=== PATIENT | female | born 1980 | race Two or more races ===

== ENCOUNTER 2024-02-13 20:01 | Emergency (ER) | payer MEDICAID, OTHER ==
[~2024-02-13] VITALS: Ht 167.6 cm; Wt 149.0 kg
[2024-02-13 20:34] VITALS: BP 133/88; TEMP 98.7
[2024-02-13] MEDS: IPRATROPIUM BROM 0.5 MG/2.5ML INH SOL NEB ONE (21:13)
[2024-02-13] MEDS: ALBUTEROL SULF 2.5 MG/0.5ML(0.5%) NEB SOLN NEB ONE (21:14)
[2024-02-13] MEDS ORDERED: ALBUAER3 IN (23:30)
[2024-02-13] MEDS ORDERED: PRED20TA2 PO (23:30)
[2024-02-13 23:40] VITALS: PULSE 67; RESP 17; O2SAT 95
[2024-02-13] MEDS: methylPREDNISolone SOD SUCC 125 MG/2 ML VL IM ONE (23:43)
== END 2024-02-14 | disposition home or self-care (01) ==
LOC: ER 20:01
DX: J45.901 Unspecified asthma with (acute) exacerbation (principal)
CPT/HCPCS: 94640; 96372; 99283; J2919

== ENCOUNTER 2025-05-12 06:03 | Inpatient (IN) | payer MEDICAID ==
[2025-05-12] VITALS (9 sets, daily range): BP systolic 128–146; BP diastolic 59–96; PULSE 68–101; RESP 16–20; TEMP 97.2–98.3; O2SAT 94–99
[~2025-05-12] VITALS: Ht 167.6 cm; Wt 146.5 kg
[~2025-05-12 06:03] MED LIST: ALBUAER3 IN; PRED20TA2 PO
[2025-05-12] MEDS: IPRATROPIUM BROM 0.5 MG/2.5ML INH SOL NEB ONE ×2 (06:41→11:44)
[2025-05-12] MEDS: methylPREDNISolone SOD SUCC 125 MG/2 ML VL IV ONE (06:45)
[2025-05-12] MEDS: ALBUTEROL SULF 2.5 MG/0.5ML(0.5%) NEB SOLN NEB ONE (06:50)
--- NOTE | 2025-05-12 06:55 | ED.PDOC ---
SOB-HPI HPI Comments 44-year-old female with past medical history of asthma presents to the emergency department for chief complaint of shortness of breath. Patient states she has been experiencing shortness of breath sudden onset last night at 1800. Patient reports since commencement of symptoms they have progressively gotten worse. Patient comments, on using her inhaler at home with no relief of symptoms. Upon arrival to the emergency department, patient's saturation read at 92% on R.A; patient was placed on 2L NC for comfort. Patient denies fever, chills, cough, chest pain, or palpitations. Chief Complaint: Shortness of Breath Time Seen by MD: 06:50 Primary Care Provider: Isabella Simpson Reviewed notes: Nurses Notes, Medications, Allergies Mode of Arrival: Ambulatory Severity: Moderate Timing: Hours Duration: Since onset Context: At Rest PE Risk Factors: None History of: Asthma Prehospital treatment: None Modifying Factors: Nothing Associated Signs and Symptoms: None Past Medical History PAST MEDICAL HISTORY: Asthma Surgical History: Denies all surgeries SERVICE OBSERVER CHIEF History: No Pertinent SERVICE OBSERVER CHIEF History Family History Family History: Unknown Social History Smoker: Non-Smoker Alcohol: Denies ETOH Use Drugs: Denies Drug Use Lives In: Home Constitutional: denies: chills, diaphoresis, fatigue, fever, malaise, sweats, weakness, others EENTM: denies: blurred vision, double vision, ear bleeding, ear discharge, ear drainage, ear pain, ear ringing, eye pain, eye redness, hearing loss, mouth pain, mouth swelling, nasal discharge, nose bleeding, nose congestion, nose pain, photophobia, tearing, throat pain, throat swelling, voice changes, others Respiratory: reports: shortness of breath; denies: cough, hemoptysis, orthopnea, SOB at rest, SOB with excertion, stridor, wheezing, others Cardiovascular: denies: chest pain, dizzy spells, diaphoresis, Dyspnea on exertion, edema, irregular heart beat, left arm pain, lightheadedness, palpitations, PND, syncope, others Gastrointestinal: denies: abdomen distended, abdominal pain, blood streaked bowels, constipated, diarrhea, dysphagia, difficulty swallowing, hematemesis, melena, nausea, poor appetite, poor fluid intake, rectal bleeding, rectal pain, vomiting, others Genitourinary: denies: abnormal vagina bleeding, burning, dyspareunia, dysuria, flank pain, frequency, hematuria, incontinence, pain, , vagina discharge, urgency, others Neurological: denies: dizziness, fainting, headache, left sided numbness, left sided weakness, numbness, paresthesia, pre-existing deficit, right sided numbness, right sided weakness, seizure, speech problems, tingling, tremors, weakness, others Musculoskeletal: denies: back pain, gout, joint pain, joint swelling, muscle pa in, muscle stiffness, neck pain, others Integumetry: denies: bruises, change in color, change in hair/nails, dryness, laceration, lesions, lumps, rash, wounds, others Allergic/Immunocompromised: denies: Difficulty Healing, Frequent Infections, Hives, Itching, others Hematologic/Lymphatic: denies: anemia, blood clots, easy bleeding, easy bruising, swollen glands, others Endocrine: denies: excessive hunger, excessive sweating, excessive thirst, excessive urination, flushing, intolerance to cold, intolerance to heat, unexplained weight gain, unexplained weight loss, others Psychiatric: denies: anxiety, bipolar disorder, depression, hopeless, panic disorder, schizophrenia, sleepless, suicidal, others All Other Systems: Reviewed and Negative Physical Exam General Appearance: Moderate Distress HEENT: Normal ENT Inspection, Pharynx Normal, TMs Normal Neck: Full Range of Motion, Non-Tender, Normal, Normal Inspection Respiratory: Respiratory Distress, Wheezing Cardiovascular: No Edema, No JVD, No Murmur, No Gallop, Normal Peripheral Pulses, Regular Rate/Rhythm Breast Exam: Deferred Gastrointestinal: No Organomegaly, Non Tender, No Pulsatile Mass, Normal Bowel Sounds, Soft Genitalia: Deferred Pelvic: Deferred Rectal: Deferred Extremities: No calf tenderness, Normal capillary refill, Normal inspection, Normal range of motion, Non-tender, No pedal edema Musculoskeletal : Apperance: Normal Neurologic: Alert, painting machine operator II-XII nml as Tested, No Motor Deficits, Normal Affect, Normal Mood, No Sensory Deficits Cerebellar Function: Normal Reflexes: Normal Skin: Dry, Normal Color, Warm Peripheral Pulses: 3+ Radial (R), 3+ Radial (L) Lymphatic: No Adenopathy Was a procedure done? Was a procedure done?: No Differential Dx Differential Diagnosis: Anxiety, Asthma, Bronchitis, Pneumonia, Sinusitis, Pharyngitis, URI X-Ray, Labs, Meds, VS Vital Signs Date Time Temp Pulse Resp B/P (MAP) Pulse Ox O2 Delivery O2 Flow Rate FiO2 05/12/25 06:43 18 97 Nasal Cannula* 2 28 05/12/25 06:04 97.2 101 20 146/96 96 97.2 Current Medications Medications (Trade) Dose Ordered Sig/Ibis Route Start Time Stop Time Status Last Admin Ipratropium [place] (Atrovent Medneb) 0.5 mg ONCE ONCE NEB 05/12/25 06:15 05/12/25 06:16 DC 05/12/25 06:41 Albuterol (Ventolin Medneb) 5 mg ONCE ONCE NEB 05/12/25 06:45 05/12/25 06:46 DC 05/12/25 06:50 Patient alert. Complaining of shortness a breath. Vitals stable. Answering questions. Placed on oxygen. Was given breathing treatment. Was given steroid. Explained to the patient. Continue monitoring. Time of 1ST Reevaluation: 07:20 Reevaluation 1ST: Unchanged Patient Education/Counseling: Diagnosis, Treatment Family Education/Counseling: No Family Present SEPSIS Sepsis Screen Date sepsis recognized/suspect: May 12, 2025 Time Sepsis recognized/suspect: 605 Recent Procedure: No On Antibiotic Therapy: No Respiratory Rate >20: No Heart Rate >90: Yes Temp<36 C (96.8 F) or >38.3 C: No SBP <90 or MAP <65 mmHG: No New Acute Mental Status Change: No Is the patient on CPAP, BIPAP,: No Physician Orders Azithromycin 500mg/250ml (Zithromax 500m (05/12/25 06:45) Vital Signs Date Time Temp Pulse Resp B/P (MAP) Pulse Ox O2 Delivery O2 Flow Rate FiO2 05/12/25 06:43 18 97 Nasal Cannula* 2 28 05/12/25 06:04 97.2 101 20 146/96 96 97.2 Medications Medications Dose Ordered Sig/Ibis Route Start Time Stop Time Status Last Admin Dose Admin Albuterol 5 mg ONCE ONCE NEB 05/12/25 06:45 05/12/25 06:46 DC 05/12/25 06:50 Ipratropium [place] 0.5 mg ONCE ONCE NEB 05/12/25 06:15 05/12/25 06:16 DC 05/12/25 06:41 Departure 1 Departure Time of Disposition: 08:02 Impression: Primary Impression: Acute respiratory failure Qualified Codes: J96.01 - Acute respiratory failure with hypoxia Additional Impression: Acute asthma exacerbation Qualified Codes: J45.41 - Moderate persistent asthma with (acute) exacerbation Disposition: 09 ADMITTED INPATIENT Admit to: Med Surg Condition: Guarded Critical Care Note Critical Care Time?: Yes (90 min-critical care time only) Stability Stability form required: No Heart Score Heart Score: Heart Score Response (Comments) Value History N/A 0 EKG N/A 0 Age N/A 0 Risk Factors N/A 0 Troponin N/A 0 Total 0 I personally scribed for LINDY WANG MD ([email or web address]) on 05/12/25 at 06:55. Electronically submitted by Tiffany Montalvo ([email or web address]). LINDY WANG MD May 12, 2025 06:55
[2025-05-12 09:24] LABS: Hematocrit 43.0 % (36.0-46.0); Hemoglobin 14.3 g/dL (12.2-16.2); Mean Corpuscular Hemoglobin 28.3 pg (28.0-32.0); Mean Corpuscular Volume 85.1 fL (80.0-100.0); Nucleated Red Blood Cells % 0.0 %
--- NOTE | 2025-05-12 09:34 | DVH ---
CHEST RADIOGRAPH Indication: sob Technique: Single frontal view of the chest was obtained COMPARISON: None FINDINGS: Lines and Tubes: None Lungs: Congestion Pleura: No effusion. No pneumothorax. Cardiomediastinal contours: Unremarkable Bones: Unremarkable IMPRESSION: Increased interstital prominence. This may represent pulmonary vascular congestion and/or viral pneumonia. Clinical correlation advised.
[2025-05-12 09:37] LABS: Alanine Aminotransferase 21 U/L (7-40); Albumin 4.2 g/dL (3.2-4.8); Alkaline Phosphatase 67 U/L (46-116); Anion Gap 6 (5-15); BUN/Creatinine Ratio 9.2 (10.0-20.0); Calcium 9.2 mg/dL (8.7-10.4); Carbon Dioxide 27 mmol/L (20-31); Potassium 4.0 mmol/L (3.5-5.1); Sodium 143 mmol/L (136-145); Total Protein 7.1 g/dL (5.7-8.2)
[2025-05-12 09:44] LABS: Bilirubin, Total 0.3 mg/dL (0.2-1.0); Blood Urea Nitrogen 7 mg/dL (9-23); Chloride 110 mmol/L (98-107); Glucose 108 mg/dL (74-106)
[2025-05-12] MEDS ORDERED: ONDANSETRON HCL 4 MG/2 ML VIAL IV PRN (10:30)
[2025-05-12] MEDS: PANTOPRAZOLE 40 MG TAB PO ONE (11:38)
[2025-05-12] MEDS: ALBUTEROL SULF 2.5 MG/0.5ML(0.5%) NEB SOLN NEB SCH (11:44)
[2025-05-12] MEDS: BUDESONIDE (INHALATION) 0.5 MG/2 ML NEB NEB ONE (11:44)
--- NOTE | 2025-05-12 11:49 | DVHHPRES ---
History of Present Illness Resident Creating Document: LON RUSSRICARDO RESIDENT History of Present Illness Patient is a 44-year-old female with a medical history of asthma presented to the hospital with a chief complaint of worsening shortness of breath. Patient reported she she had a flu-like illness last week and started to cough on Tuesday initially dry and then had whitish to green frothy phlegm associated with shortness of the breath which was gradually progressive, felt having chest tightness and not able to take a deep breath and patient also started to wheeze following which she had to come to the ER today in the morning for further evaluation. Patient also reported of feeling cold but denied any recorded fevers. Patient denied any chest pain, nausea, vomiting, dysuria, diarrhea or constipation Medical history: Asthma Surgical history: D and C in 2014 Social history: Patient smokes about 3-4 joints of marijuana every day, denies any tobacco use, occasional alcohol use, no other drug use Home medications: Albuterol inhaler as needed Review of Systems Review of Systems Patient seen and examined at chair side Was on 4 L nasal cannula saturating 96%, titrated down to 2 L saturating 95% Reported shortness of breath was improved since she has been in the hospital and received a steroid shot, breathing treatments No fever, chills, dysuria, diarrhea or constipation Allergies: Coded Allergies: NO KNOWN ALLERGIES (Unverified , 02/13/24) Medications Current Medications Medications Dose Ordered Sig/Ibis Route Start Time Stop Time Status Last Admin Dose Admin Methylprednisolone Sodium Succinate 40 mg BID IV 05/12/25 22:00 Albuterol 2.5 mg Q6HR NEB 05/12/25 12:00 Ipratropium [place] 0.5 mg Q6HR NEB 05/12/25 12:00 Azithromycin 500 mg DAILY PO 05/13/25 10:00 Ceftriaxone Sodium 50 ml @ 100 mls/hr DAILY@09 IV 05/13/25 09:00 Ondansetron HCl 4 mg Q6HPRN PRN IV 05/12/25 10:30 Pantoprazole Sodium 40 mg DAILY@0600 PO 05/13/25 06:00 Exam Vital Signs Vital Signs Date Time Temp Pulse Resp B/P (MAP) Pulse Ox O2 Delivery O2 Flow Rate FiO2 05/12/25 06:43 18 97 Nasal Cannula* 2 28 05/12/25 06:04 97.2 101 146/96 97.2 Exam Skin - Patients skin is warm and dry. HEENT - normocephalic, atraumatic, moist mucous membranes, no conjunctival pallor, no icterus. Neck - full ROM, no LAD, no JVD Pulmonary - B/L diffuse scattered inspiratory and expiratory wheezes, no rales cardiovascular - regular S1,S2 heard, no added sounds, no murmurs heard. GI - soft, nontender abdomen. no hepatospleenomegaly. Bowel sounds normoactive Neurological - Patient is A/O X 4. Bilateral upper extremity strength 5/5, bilateral lower extremity strength 5/5, no facial droop, normal speech, no danay mor, no sensory deficiets. Labs/Xrays Labs Test 05/12/25 09:01 Range/Units White Blood Count 6.9 4.4-10.8 10^3/uL Red Blood Count 5.06 4.0-5.20 10^6/uL Hemoglobin 14.3 12.2-16.2 g/dL Hematocrit 43.0 36.0-46.0 % Mean Corpuscular Volume 85.1 80.0-100.0 fL Mean Corpuscular Hemoglobin 28.3 28.0-32.0 pg Mean Corpuscular Hemoglobin Concent 33.2 32.0-36.0 g/dL Red Cell Distribution Width 14.4 H 11.8-14.3 % Platelet Count 326 140-450 10^3/uL Mean Platelet Volume 7.8 6.9-10.8 fL Neutrophils (%) (Auto) 61.8 37.0-80.0 % Lymphocytes (%) (Auto) 24.0 10.0-50.0 % Monocytes (%) (Auto) 8.7 0.0-12.0 % Eosinophils (%) (Auto) 4.7 0.0-7.0 % Basophils (%) (Auto) 0.8 0.0-2.0 % Neutrophils # (Auto) 4.3 1.6-8.6 10 ^3/uL Lymphocytes # (Auto) 1.7 0.4-5.4 10 ^3/uL Monocytes # (Auto) 0.6 0-1.3 10 ^3/uL Eosinophils # (Auto) 0.3 0-0.8 10 ^3/uL Basophils # (Auto) 0.1 0-0.2 10 ^3/uL Nucleated Red Blood Cells 0.0 % Sodium Level 143 136-145 mmol/L Potassium Level 4.0 3.5-5.1 mmol/L Chloride Level 110 H 98-107 mmol/L Carbon Dioxide Level 27 20-31 mmol/L Anion Gap 6 5-15 Blood Urea Nitrogen 7 L 9-23 mg/dL Creatinine 0.76 0.550-1.02 mg/dL Glomerular Filtration Rate Calc 100 >90 mL/min BUN/Creatinine Ratio 9.2 L 10.0-20.0 Serum Glucose 108 H 74-106 mg/dL Calcium Level 9.2 8.7-10.4 mg/dL Total Bilirubin 0.3 0.2-1.0 mg/dL Aspartate Amino Transferase (AST) 23 13-40 U/L Alanine Aminotransferase (ALT) 21 7-40 U/L Alkaline Phosphatase 67 46-116 U/L Total Protein 7.1 5.7-8.2 g/dL Albumin 4.2 3.2-4.8 g/dL Thyroid Stimulating Hormone (TSH) 1.92 0.55-4.78 uIU/mL SEPSIS Sepsis Screen Date sepsis recognized/suspect: May 12, 2025 Time Sepsis recognized/suspect: 605 Recent Procedure: No On Antibiotic Therapy: No Respiratory Rate >20: No Heart Rate >90: Yes Temp<36 C (96.8 F) or >38.3 C: No SBP <90 or MAP <65 mmHG: No New Acute Mental Status Change: No Is the patient on CPAP, BIPAP,: No Physician Orders Chest Xray 1 View (05/12/25 08:47) Test, Urine (05/12/25 08:47) Admit (05/12/25 10:27) Oxygen By Nasal Cannula (05/12/25 10:27) Stat Ekg For Chest Pain (05/12/25 10:27) Notify Md Of Changes From Base (05/12/25 10:27) Emergency Dysrhythmia Protocol (05/12/25 10:27) Methylprednisolone Sod Succ (Solu Medrol (05/12/25 22:00) Methylprednisolone Sod Succ (Solu Medrol (05/12/25 14:30) Albuterol Medneb (Ventolin Medneb) (05/12/25 12:00) Ipratropium [place] (Atrovent Medneb) (05/12/25 12:00) Azithromycin Tablet (Zithromax Tablet) (05/13/25 10:00) Ceftriaxone 1gm/50ml (Rocephin) (05/13/25 09:00) Rapid Influenza A&B (05/12/25 10:27) Covid19 Antigen Laura (05/12/25 ) Ondansetron Hcl (Zofran) (05/12/25 10:30) Pantoprazole Tablet (Protonix Tablet) (05/13/25 06:00) Regular Diet (05/12/25 Lunch) Respiratory Culture W/ Gs (05/12/25 10:27) Complete Blood Count (05/13/25 04:00) Vital Signs Date Time Temp Pulse Resp B/P (MAP) Pulse Ox O2 Delivery O2 Flow Rate FiO2 05/12/25 06:43 18 97 Nasal Cannula* 2 28 05/12/25 06:04 97.2 101 20 146/96 96 97.2 Laboratory Tests Test 05/12/25 09:01 White Blood Count 6.9 10^3/uL (4.4-10.8) Medications Medications Dose Ordered Sig/Ibis Route Start Time Stop Time Status Last Admin Dose Admin Albuterol 5 mg ONCE ONCE NEB 05/12/25 06:45 05/12/25 06:46 DC 05/12/25 06:50 5 MG Ipratropium [place] 0.5 mg ONCE ONCE NEB 05/12/25 06:15 05/12/25 06:16 DC 05/12/25 06:41 0.5 MG Assessment/Plan Assessment/Plan Acute hypoxic respiratory failure likely due to asthma exacerbation Asthma exacerbation with eosinophilia Probable viral pneumonia with superimposed bacterial infection likely gram+/- - Solu-Medrol 40 b.i.d. - budesonide inhaler b.i.d. - duo nebs q.6 hours - IV ceftriaxone and azithromycin p.o. daily - rapid influenza, COVID pending PUD prophylaxis: Protonix DVT prophylaxis: Patient is ambulatory Goals of care discussed with the patient for over 15 minutes. Full code Time spent: 36 minutes Plan discussed with Dr. Hamilton Plan discussed with: Patient, Other (RN) My Orders Orders - RUDOLPH RUSS RESIDENT Procedure Category Date Status Time Chest Xray 1 View XY 11/30/25 Resulted 08:47 Test, Urine LAB 05/12/25 Logged 08:47 Admit ADMIT 05/12/25 Transmitted 10:27 Oxygen By Nasal RT 05/12/25 Transmitted Cannula 10:27 Stat Ekg For Chest JOSE 05/12/25 In Process Pain 10:27 Notify Md Of Changes JOSE 05/12/25 In Process From Base 10:27 Emergency Dysrhythmia JOSE 05/12/25 In Process Protocol 10:27 Methylprednisolone PHA 05/12/25 In Process Sod Succ (Solu Medrol 22:00 Methylprednisolone PHA 05/12/25 In Process Sod Succ (Solu Medrol 14:30 Albuterol Medneb PHA 05/12/25 In Process (Ventolin Medneb) 12:00 Ipratropium [place] PHA 05/12/25 In Process (Atrovent Medneb) 12:00 Azithromycin Tablet PHA 05/13/25 In Process (Zithromax Tablet) 10:00 Ceftriaxone 1gm/50ml PHA 05/13/25 In Process (Rocephin) 09:00 Rapid Influenza A&B LAB 05/12/25 Logged 10:27 Covid19 Antigen Laura LAB 05/12/25 Logged Ondansetron Hcl PHA 05/12/25 In Process (Zofran) 10:30 Pantoprazole Tablet PHA 05/13/25 In Process (Protonix Tablet) 06:00 Regular Diet DIET 05/12/25 Transmitted Lunch Respiratory Culture JUMA 05/12/25 Logged W/ Gs 10:27 Complete Blood Count LAB 05/13/25 Verified 04:00 Date of Service: May 12, 2025 Billing Provider: SALENA HAMILTON MD Common Visit Codes: 45887-RWLHCST INP/OBS CARE (HIGH) Secondary Visit Codes: [id number] CARE PLAN 30 MINUTES RUDOLPH RUSS RESIDENT May 12, 2025 11:49 SALENA HAMILTON MD May 12, 2025 23:16
[2025-05-12] MEDS: BUDESONIDE (INHALATION) 0.5 MG/2 ML NEB ONE (11:59)
[2025-05-12] MEDS: IPRATROPIUM BROM 0.5 MG/2.5ML INH SOL NEB SCH (12:00)
[2025-05-12 12:19] LABS: COVID19 ANTIGEN SOFIA FIA NEGATIVE (NEGATIVE)
[2025-05-12] MEDS: methylPREDNISolone SOD SUCC 40 MG/ML VL IV ONE (15:21)
[2025-05-12] MEDS: SODIUM CHLORIDE 0.9% 1,000 ML IV ONE (15:21)
[2025-05-12] MEDS: AZITHROMYCIN 500MG/250ML 250 ML IV ONE (16:10)
[2025-05-12] MEDS: methylPREDNISolone SOD SUCC 40 MG/ML VL IV SCH (21:59)
[2025-05-13] MEDS: BUDESONIDE (INHALATION) 0.5 MG/2 ML NEB NEB SCH
[2025-05-13 00:01] VITALS: PULSE 82; RESP 18; O2SAT 95
[2025-05-13 00:11] VITALS: PULSE 85; RESP 18; O2SAT 98
[2025-05-13 01:00] VITALS: BP 133/62; PULSE 90; RESP 19; TEMP 98.2; O2SAT 94
[2025-05-13] MEDS ORDERED: ACETAMINOPHEN 325 MG TAB PO PRN (03:45)
[2025-05-13] MEDS ORDERED: PANTOPRAZOLE 40 MG TAB PO SCH (06:00)
[2025-05-13] MEDS ORDERED: AZITHROMYCIN 250 MG TAB PO SCH (10:00)
== END 2025-05-13 04:04 | disposition left against medical advice (07) | DRG 133 ==
LOC: ER 06:03 → OVERFLOW 10:27
PROVIDERS: ATTEND Emergency Medicine
DX: J96.01 Acute respiratory failure with hypoxia (principal); J15.69 Pneumonia due to other Gram-negative bacteria; D72.10 Eosinophilia, unspecified; J12.9 Viral pneumonia, unspecified; J15.9 Unspecified bacterial pneumonia; J45.41 Moderate persistent asthma with (acute) exacerbation; Z20.822 Contact with and (suspected) exposure to COVID-19; Z53.29 Procedure and treatment not carried out because of patient's decision for other reasons
CPT/HCPCS: 36415; 71045; 80053; 81025; 84443; 85025; 87426; 87804; 94640; 96365; 96375; 99291; 99292; G0378